=== PATIENT | female | born 1980 | race Two or more races ===

== ENCOUNTER 2019-06-02 15:16 | Emergency (ER) | payer OTHER ==
[~2019-06-02] VITALS: Ht 152.4 cm; Wt 53.1 kg
--- NOTE | 2019-06-02 16:02 | NUR ---
FOSTER CAN AT BEDSIDE FOR MSE.
[2019-06-02] MEDS ORDERED: ONDANSETRON 4 MG/2 ML VIAL IV ONE (16:15)
[2019-06-02] MEDS ORDERED: ACETAMINOPHEN ES 500 MG TABLET PO ONE (16:15)
[2019-06-02] MEDS ORDERED: IV NORMAL SALINE 1000 ML BAG IV ONE (16:15)
[2019-06-02 16:19] LABS: BASOPHILS % (AUTO) 0.3 % (0.0-2.0); EOSINOPHILS % (AUTO) 0.2 % (0.0-7.0); HEMATOCRIT 41.5 % (31.2-41.9); HEMOGLOBIN 13.7 g/dL (10.9-14.3); LYMPHOCYTES # (AUTO) 0.6 K/uL (20.0-40.0); LYMPHOCYTES % (AUTO) 4.3 % (20.5-51.5); MEAN CORPUSCULAR HEMOGLOBIN 29.8 uug (24.7-32.8); MEAN CORPUSCULAR HGB CONC 33 g/dL (32.3-35.6); MEAN CORPUSCULAR VOLUME 90.5 fL (75.5-95.3); MONOCYTES # (AUTO) 0.5 K/uL (2.0-10.0); MONOCYTES % (AUTO) 3.6 % (0.0-11.0); NEUTROPHILS # (AUTO) 12.5 K/uL (1.8-8.9); NEUTROPHILS % (AUTO) 91.6 % (38.5-71.5); PLATELET COUNT (AUTO) 343 K/uL (179-408); RED BLOOD CELL COUNT(AUTO) 4.59 MIL/uL (3.63-4.92); WHITE BLOOD COUNT (AUTO) 13.7 K/uL (3.8-11.8)
[2019-06-02] MEDS ORDERED: ONDANSETRON 4 MG/2 ML VIAL ONE (16:20)
[2019-06-02] MEDS ORDERED: ACETAMINOPHEN ES 500 MG TABLET ONE (16:20)
[2019-06-02 16:22] LABS: *BILIRUBIN,URIN NEGATIVE (NEGATIVE); *CLARITY,URINE CLOUDY (CLEAR); *COLOR,URINE YELLOW (YELLOW); *KETONES,URINE 1+ (NEGATIVE); LEUKOCYTE ESTERASE ,URINE 3+ (NEGATIVE); NITRITE, URINE POSITIVE (NEGATIVE); PH,URINE 6.5 (5.0-8.0); UGLUCOSE NEGATIVE (NEGATIVE)
[2019-06-02 16:29] LABS: CARBON DIOXIDE 28 mmol/L (21-32); CHLORIDE 103 mmol/L (98-107); CREATININE 0.6 mg/dL (0.6-1.3); GLUCOSE 107 mg/dL (74-106); POTASSIUM 3.5 mmol/L (3.5-5.1); UREA NITROGEN, BLOOD 10 mg/dL (7-18)
[2019-06-02 16:31] LABS: *BLOOD, URINE TRACE (NEGATIVE)
[2019-06-02 16:32] LABS: BACTERIA,URINE MANY /HPF (NONE SEEN); MUCUS,URINE MANY /LPF (0-FEW); SQUAMOUS EPITHELIAL CELL,UR MODERATE /HPF (NONE SEEN); WBC,URINE 80-100 /HPF (0-3)
[2019-06-02 16:34] LABS: ALANINE AMINOTRANSFERASE 19 U/L (14-59); ALKALINE PHOSPHATASE 67 U/L (50-136); ASPARTATE AMINOTRANSFERASE 16 U/L (15-37); BILIRUBIN,DIRECT 0.2 mg/dL (0.0-0.2); BILIRUBIN,TOTAL 0.7 mg/dL (0.2-1.0); LIPASE 105 U/L (73-393); TOTAL PROTEIN, SERUM 8.2 g/dL (6.4-8.2)
[2019-06-02] MEDS ORDERED: CEFTRIAXONE 2 G in IV DEXTROSE 5% 100 ML IV ONE (16:45)
[2019-06-02] MEDS ORDERED: CEFTRIAXONE 1 G VIAL ONE (16:58)
[2019-06-02] MEDS ORDERED: HYDROCODONE/APAP 5-325MG TABLET PO ONE (17:15)
[2019-06-02] MEDS ORDERED: HYDROCODONE/APAP 5-325MG TABLET ONE (17:20)
--- NOTE | 2019-06-02 18:12 | NUR ---
Patient discharged to home in stable conditon. Written and verbal after care instructions given. Patient verbalizes understanding of instructions. ALL BELONGINGS W/ PT. 20G IV ACCESS IN RAC REMOVED PRIOR TO D/C - INNER CANNULA INTACT. PT SELF-AMBULATED W/O DIFFICULTY. PT'S BROTHER WILL DRIVE HER HOME IN PRIVATE VEHICLE.
[2019-06-02 18:13] VITALS: BP 106/76
== END 2019-06-02 18:13 | disposition home or self-care (01) ==
LOC: ER 15:16
DX: N12 Tubulo-interstitial nephritis, not specified as acute or chronic (principal); J32.9 Chronic sinusitis, unspecified
CPT/HCPCS: 36415; 80048; 80076; 81000; 81001; 83690; 84702; 85025; 87086; 96365; 96375; 99283; J0696; J2405; J7060; 87077; A4663; A9150; J7030